=== PATIENT | male | born 1945 | race Two or more races ===

== ENCOUNTER 2018-04-25 21:43 | Inpatient (IN) | payer OTHER ==
[~2018-04-25] VITALS: Ht 165.1 cm; Wt 68.0 kg
--- NOTE | 2018-04-25 22:00 | NUR ---
PT BBPA C/C "AM HERE FOR CHRONIC CONSTIPATION/PAIN; LAST BM TODAY". PT DENIES N/V/D. SKIN WNL. PT STATES ABD PAIN LEVEL 9/10 WITH GENERALIZED BODY PAIN. PT IS AAOX4. VSS. RESP EVEN AND UNLABORED. NO S/S OF ACUTE DISTRESS NOTED. PT PLACED ON CONT MONITOR AND POX. PT SAFETY AND COMFORT MEASURES IN PLACE. AWAITING MD FOR EVAL
--- NOTE | 2018-04-25 22:10 | NUR ---
PT DENIES SI, HI
[2018-04-25] MEDS ORDERED: MAGNESIUM HYDROXIDE 30 ML UDC PO ONE (23:00)
[2018-04-25] MEDS ORDERED: HYDROMORPHONE 1 MG/1 ML DISP.SYRIN IM ONE (23:00)
[2018-04-25] MEDS ORDERED: NA PHOS,M-B/NA PHOS,DI-BA 1 EA ENEMA RC ONE ×2 (23:00→23:01)
[2018-04-25] MEDS ORDERED: LORAZEPAM 1 MG TABLET PO ONE (23:00)
[2018-04-25] MEDS ORDERED: MAGNESIUM CITRATE 296 ML BOTTLE PO ONE (23:00)
--- NOTE | 2018-04-25 23:00 | NUR ---
DEBORA PLACED BEDSIDE FOR PT.
[2018-04-25] MEDS ORDERED: MAGNESIUM HYDROXIDE 30 ML UDC ONE (23:01)
[2018-04-25] MEDS ORDERED: MAGNESIUM CITRATE 296 ML BOTTLE ONE (23:01)
[2018-04-25] MEDS ORDERED: LORAZEPAM 1 MG TABLET ONE ×2 (23:02→23:04)
[2018-04-25] MEDS ORDERED: HYDROMORPHONE INJ 2 MG/ML DISP.SYRIN ONE (23:03)
--- NOTE | 2018-04-25 23:50 | NUR ---
PT RESTING IN BED WITH NO S/S OF DISTRESS NOTED. WILL CONTINUE TO MONITOR PT
--- NOTE | 2018-04-26 00:40 | NUR ---
PT UNABLE TO GIVE URINE AT THIS TIME. PT REFUSED ROBERTS CATH. PT STATES "I NEED SOME WATER TO TRY AT URINATE. WATER GIVEN TO PT. WILL CONTINUE TO MONITOR PT.
--- NOTE | 2018-04-26 00:55 | NUR ---
REPORT GIVEN TO GPS JULIANA MEZA FOR DONALD.
[2018-04-26 00:57] LABS: BASOPHILS % (AUTO) 0.2 % (0.0-2.0); EOSINOPHILS % (AUTO) 1.3 % (0.0-6.0); HEMATOCRIT 41 % (39-51); HEMOGLOBIN 13.2 g/dL (13.5-17.5); LYMPHOCYTES # (AUTO) 2.4 /CMM (0.8-4.8); LYMPHOCYTES % (AUTO) 28.2 % (20.0-44.0); MEAN CORPUSCULAR HEMOGLOBIN 26 PG (26.0-33.0); MEAN CORPUSCULAR HGB CONC 32 g/dl (31.0-36.0); MEAN CORPUSCULAR VOLUME 82 fL (80-96); MONOCYTES # (AUTO) 0.6 /CMM (0.1-1.30); MONOCYTES % (AUTO) 6.5 % (2.0-12.0); NEUTROPHILS # (AUTO) 5.5 /CMM (1.8-8.9); NEUTROPHILS % (AUTO) 63.8 % (43.0-81.0); PLATELET COUNT (AUTO) 278 /CMM (150-450); RDW COEFFICIENT OF VARIATION 16.3 (11.5-15.0); RED BLOOD CELL COUNT(AUTO) 5.05 MIL/uL (4.5-6.0); WHITE BLOOD COUNT (AUTO) 8.6 K/uL (4.3-11.0)
[2018-04-26 01:00] LABS: CALCIUM, SERUM 8.8 mg/dL (8.5-10.1); CARBON DIOXIDE 24 mmol/L (21-32); CHLORIDE 101 mmol/L (98-107); CREATININE 1.1 mg/dL (0.6-1.3); GLUCOSE 109 mg/dL (74-106); POTASSIUM 4.3 mmol/L (3.5-5.1); SODIUM SERUM 134 mmol/L (136-145); UREA NITROGEN, BLOOD 8 mg/dL (7-18)
[2018-04-26 01:05] LABS: ALANINE AMINOTRANSFERASE 21 U/L (12-78); ALBUMIN 4.2 g/dL (3.4-5.0); ALKALINE PHOSPHATASE 78 U/L (46-116); ASPARTATE AMINOTRANSFERASE 38 U/L (15-37); BILIRUBIN,DIRECT 0.1 mg/dL (0.0-0.2); BILIRUBIN,TOTAL 0.7 mg/dL (0.2-1.0); TOTAL PROTEIN, SERUM 7.5 g/dL (6.4-8.2)
[2018-04-26 01:08] LABS: ACETAMINOPHEN 0 ug/ml (10-30); ALCOHOL, BLOOD < 3 mg/dL (0-0)
--- NOTE | 2018-04-26 01:32 | NUR ---
URINE SAMPLE COLLECTED AND CALLED LAB FOR CLAIMS ADJUSTER.
[2018-04-26 01:55] LABS: APPEARANCE,URINE CLEAR (CLEAR); BILIRUBIN,URINE NEGATIVE (NEGATIVE); BLOOD, URINE NEGATIVE Ery/uL (NEGATIVE); COLOR,URINE YELLOW (YELLOW); KETONES,URINE TRACE (NEGATIVE); LEUKOCYTE ESTERASE ,URINE NEGATIVE (NEGATIVE); NITRITE, URINE NEGATIVE (NEGATIVE); PH,URINE 8.5 (5.0-8.0); PROTEIN,URINE NEGATIVE (NEGATIVE); UGLUCOSE NEGATIVE (NEGATIVE); UROBILINOGEN,URINE 0.2 EU/dL (0.2)
[2018-04-26 02:14] LABS: BACTERIA,URINE Rare /HPF (None Seen); RBC,URINE 0-2 /HPF (0-2); SQUAMOUS EPITHELIAL CELL,UR Rare /HPF (None Seen); WBC,URINE 0-2 /HPF (0-3)
[2018-04-26] MEDS ORDERED: TEMAZEPAM 7.5 MG CAPSULE PO PRN (02:30)
[2018-04-26] MEDS ORDERED: MAGNESIUM HYDROXIDE 30 ML UDC PO PRN (02:30)
[2018-04-26] MEDS ORDERED: ACETAMINOPHEN 325 MG TABLET PO PRN (02:30)
[2018-04-26] MEDS ORDERED: MAG HYDROX/AL HYDROX/SIMETH 30 ML UDC PO PRN (02:30)
[2018-04-26] MEDS ORDERED: LORAZEPAM 0.5 MG TABLET PO PRN (02:30)
--- NOTE | 2018-04-26 02:30 | NUR ---
ADMITTED DIRECTLY FROM ED VIA GURNEY, CAME TO THE UNIT AROUND 0145 ACCOMPANIED BY ED STAFF. PATIENT ADMITTED VOLUNTARILY FOR DEPRESSION. UPON FACE TO FACE PATIENT IS ALERT AND ORIENTED X 4, COOPERATIVE, APPROPRIATE, THOUGHT PROCESS INTACT. PER PATIENT, HE'S BEEN FEELING DEPRESSED FOR "A FEW WEEKS" DUE TO FEELING OVERWHELMED WITH CHRONIC MEDICAL CONDITIONS OF CHRONIC PAIN REQUIRING OPIATE MEDICATIONS, AND CHRONIC CONSTIPATION. STATES FEELING SAD, LACK OF ENERGY, POOR CONCENTRATION FOR A FEW WEEKS. DENIES SI/HI OR HALLUCINATIONS. PLACED PATIENT IN BED COMFORTABLY AFTER ORIENTED TO UNIT. RESPIRATION EVEN, BREATHING PATTERN NON-LABORED, NO APPARENT DISTRESS NOTED, 97% SAT. ON ROOM AIR. SKIN CLEAR EXCEPT BRUISE ON LEFT ARM. NO HX OF FALLS, AMBULATORY BUT UNSTEADY AT THIS TIME DUE TO MEDICATIONS IN ED. EDUCATED TO ASK FOR ASSISTANCE NEEDED WITH AMBULATION , PLACED ON FALL PRECAUTION, BED ALARM ACTIVATED. BELONGINGS INVENTORIED AND CHECKED FOR CONTRABAND, VALUABLES PUT TO SAFE. PATIENT IS UNDER THE PSYCHIATRIC CARE OF DR. NEWBERRY AND MEDICAL CARE OF DR. MACK. Vicky. BED LOCKED AND PLACED ON LOWEST POSITION TO MAINTAIN SAFETY. WILL CONTINUE TO MONITOR Q 15 MINS. FOR SAFETY AND BEHAVIOR. DR. MACK NOTIFIED ABOUT MED RECONCILIATION. PATIENT IS DNR/DNI, COPY ON CHART. PATIENT STATES HE WILL NOTIFY FAMILY OF HIS ADMISSION.
[2018-04-26] MEDS ORDERED: MORP30TA59 PO (03:41)
[2018-04-26] MEDS ORDERED: DOCU-141 PO (03:41)
[2018-04-26] MEDS ORDERED: POLY17PO4 PO (03:41)
[2018-04-26] MEDS ORDERED: ONDA4TAB8 PO (03:41)
[2018-04-26] MEDS ORDERED: LACT30003 PO (03:41)
[2018-04-26] MEDS ORDERED: L. A1TAB10 PO (03:41)
[2018-04-26] MEDS ORDERED: [UNRECOGNIZED DRUG - OTHER] (03:41)
[2018-04-26] MEDS ORDERED: LOSA50TA3 PO (03:41)
[2018-04-26] MEDS ORDERED: PREG50CA PO (03:41)
[2018-04-26] MEDS ORDERED: ATOR20TA PO (03:41)
[2018-04-26] MEDS ORDERED: TRAZ-214 PO (03:41)
[2018-04-26] MEDS ORDERED: FLUT16SP16 NS (03:41)
[2018-04-26] MEDS ORDERED: CETI-102 PO (03:41)
[2018-04-26] MEDS ORDERED: PARO20TA7 PO (03:41)
[2018-04-26] MEDS ORDERED: ASPI-1152 PO (03:41)
[2018-04-26] MEDS ORDERED: AMLO5TAB2 PO (03:41)
[2018-04-26] MEDS ORDERED: PROP10TA68 PO (03:41)
[2018-04-26] MEDS ORDERED: GABA300C PO (03:41)
[2018-04-26] MEDS ORDERED: MINO100T PO (03:41)
[2018-04-26] MEDS ORDERED: MELA3TAB PO (03:41)
[2018-04-26] MEDS ORDERED: FERR324T7 PO (03:41)
[2018-04-26] MEDS ORDERED: vitamin b2 (03:41)
[2018-04-26] MEDS ORDERED: PANT40TA2 PO (03:41)
[2018-04-26] MEDS ORDERED: CARB-93 PO (03:41)
--- NOTE | 2018-04-26 06:03 | NUR ---
CALLED [facility] FOR DR. MACK TO RECONCILE MEDS, WAITING CB.
[2018-04-26 08:18] VITALS: BP 138/75
[2018-04-26] MEDS ORDERED: DOCU250C14 PO (08:22)
[2018-04-26] MEDS ORDERED: RIBO400T PO (08:22)
[2018-04-26] MEDS ORDERED: LOPE2CAP PO (08:47)
[2018-04-26] MEDS ORDERED: METH-406 PO (08:47)
--- NOTE | 2018-04-26 09:21 | NUR ---
GPS/RN PATIENT C/O BEING VERY ANXIOUS, ADMINISTERED ATIVAN 0.5 MG PER PATIENT REQUEST, WILL CONTINUE TO MONITOR.
[2018-04-26] MEDS: QUETIAPINE FUMARATE 25 MG TABLET PO SCH ×2 (09:22→17:23)
--- NOTE | 2018-04-26 10:06 | NUR ---
JJ received a phone call from Ebony at [facility] [phone] informing JJ that [facility] is transferring pt to another hospital due to [facility] not being a covered facility under pts insurance. Ebony requested that JJ fax over clinical packet to [phone] to begin transfer process to a different hospital.
--- NOTE | 2018-04-26 10:11 | NUR ---
JJ faxed clincial packet to Ebony at [facility] [phone].
--- NOTE | 2018-04-26 12:53 | NUR ---
GPS/RN SILK WINDING MACHINE OPERATOR KOREY ANGELA NOTIFIED OF NEED TO RECONCILE MEDICATIONS IN SYSTEM FOR NEW ADMISSION. AWAITING CALL BACK
--- NOTE | 2018-04-26 15:45 | NUR ---
JJ received a phone call from Ebony at [facility] [phone] informing JJ that [facility] reviewed pts clinical notes and the medical review team decided that pt does not meet criteria for hospitalization and therefore would not cover pts hospital stay.
[2018-04-26 16:00] VITALS: BP 141/67
[2018-04-26] MEDS ORDERED: PREGABALIN 25 MG CAPSULE PO SCH (17:00)
[2018-04-26] MEDS ORDERED: DOCUSATE SODIUM 250 MG CAPSULE PO PRN (17:00)
[2018-04-26] MEDS ORDERED: METHOCARBAMOL (750MG) 750 MG TABLET PO PRN (17:00)
[2018-04-26] MEDS ORDERED: GABAPENTIN 300 MG CAPSULE PO PRN (17:00)
[2018-04-26] MEDS ORDERED: LOPERAMIDE HCL (2 MG CAP) 2 MG CAPSULE PO PRN (17:00)
[2018-04-26] MEDS ORDERED: CARBIDOPA/LEVODOPA 25/100 MG 1 UDTAB PO SCH (17:00)
[2018-04-26] MEDS ORDERED: FLUTICASONE PROPIONATE 16 GM BOTTLE NS SCH (17:00)
[2018-04-26] MEDS ORDERED: ONDANSETRON 4 MG TAB.RAPDIS PO PRN (17:00)
[2018-04-26] MEDS ORDERED: PROPRANOLOL HCL 10 MG TABLET PO PRN (17:00)
--- NOTE | 2018-04-26 17:16 | NUR ---
RN-CO: Patient was seen and examined by Rodríguez Ruiz NP and medically cleared the patient for discharge.
--- NOTE | 2018-04-26 18:15 | NUR ---
GPS/RN PATIENT CLEARED FOR DISCHARGE HOME TO ASSISTED LIVING BY DR NEWMAN AND STENCIL PRINTER COREEN. MEDICATIONS RECONCILED BY BOTH DR'S. EXIT CARE AFTERCARE PLAN AND MEDICATIONS EXPLAINED TO PATIENT, VERBALIZED UNDERSTANDING. PSYCHIATRIC PRESCRIPTIONS INCLUDED IN PACKET, PATIENT STATED THAT HE DID NOT REQUIRE ANY MEDICAL PRESCRIPTIONS, STENCIL PRINTER KOREY AWARE. PATIENT STATED THAT HE DID NOT HAVE A PREFERRED PHARMACY AND THAT HIS ASSISTED LIVING TAKES CARE OF GET[facility]. BELONGINGS AND VALUABLES RETURNED AND PATIENT SIGNED FORM. PATIENT DENIES SI/HI/AH UPON DISCHARGE. SKIN PICTURES TAKEN WITHIN 24 HOURS. PATIENT LEFT UNIT CALM, COOPERATIVE STABLE CONDITION WITH NO DISTRESS NOTED WITH CHIEF CLERK AT SIDE. LEFT HOSPITAL VIA TAXI
[2018-04-26] MEDS ORDERED: ATORVASTATIN 10 MG TABLET PO SCH (22:00)
[2018-04-26] MEDS ORDERED: PAROXETINE HCL 20 MG TABLET PO SCH (22:00)
[2018-04-26] MEDS ORDERED: TRAZODONE 50 MG TABLET PO PRN (22:00)
[2018-04-27] MEDS ORDERED: PANTOPRAZOLE 40 MG TABLET.DR PO SCH (07:30)
--- NOTE | 2018-04-27 08:22 | NUR ---
DISCHARGE NOTE: Pt was discharged at 6:30pm due to [facility] not covering his hospital stay. Pt discharged via [facility] taxi voucher home to [facility] [address] [address] . Pts mood was sad with congruent affect as he stated he had stomach pain. SW explained to pt that [facility] did not cover his hospital stay due to not meeting hospitalization criteria. Pt denied suicidal/homicidal ideations and denied visual/auditory hallucinations. Pt stated he would be going to the [facility] to see Watch Supervisor Dr. Alberto Figueroa and Psychiatrist Dr. Bennett Address: [id number] [place] [id number] .
[2018-04-27] MEDS ORDERED: ASPIRIN EC 81 MG TABLET.DR PO SCH (09:00)
[2018-04-27] MEDS ORDERED: MORPHINE SULFATE SR 15 MG TABLET.SA PO SCH (09:00)
[2018-04-27] MEDS ORDERED: cetrizine 10 MG TABLET PO SCH (09:00)
[2018-04-27] MEDS ORDERED: ACIDOPHILUS/BULGARICUS 1 EACH TAB.CHEW PO SCH (09:00)
[2018-04-27] MEDS ORDERED: AMLODIPINE BESYLATE 5 MG TABLET PO SCH (09:00)
[2018-04-27] MEDS ORDERED: FERROUS SULFATE (325 MG) 325 MG/TAB TABLET PO SCH (09:00)
[2018-04-27] MEDS ORDERED: POLYETHYLENE GLYCOL 3350 17 GM POWD.PACK PO SCH (09:00)
[2018-04-27] MEDS ORDERED: LOSARTAN POTASSIUM 50 MG TABLET PO SCH (09:00)
[2018-04-27] MEDS ORDERED: VITAMIN B COMP W-C 1 TAB TABLET PO SCH (09:00)
== END 2018-04-26 18:15 | disposition home or self-care (01) | DRG 885 ==
LOC: ER 21:52 → GPS 04-26 01:14
PROVIDERS: ADMIT Psychiatry & Neurology Psychiatry
DX: F33.1 Major depressive disorder, recurrent, moderate (principal); K50.911 Crohn's disease, unspecified, with rectal bleeding; K59.09 Other constipation; G20 Parkinson's disease; I10 Essential (primary) hypertension; G89.4 Chronic pain syndrome; G47.00 Insomnia, unspecified
CPT/HCPCS: 36415; 80048-TC; 80076-TC; 80305; 81000-TC; 82565-TC; 85025-TC; 87081-TC; A4606; G0480; J1170; Z7610